=== PATIENT | male | born 1955 | race Caucasian/White ===

== ENCOUNTER 2020-06-16 21:32 | Inpatient (IN) | payer OTHER ==
[2020-06-16] MEDS ORDERED: Ondansetron 4 MG/2 ML SDV IVPUSH ONE (21:49)
[2020-06-16] MEDS ORDERED: HYDROmorphone 1 MG/ML Syringe IVPUSH ONE (21:49)
--- NOTE | 2020-06-16 21:55 | EDM.PDOC ---
ED HPI GENERAL MEDICAL PROBLEM - General Chief Complaint: Trauma Stated Complaint: BUCKED OFF/INJURED RIBS & RIGHT SIDE Time Seen by Provider: 06/16/20 21:37 Source of Information: Reports: Patient History Limitations: Reports: No Limitations - History of Present Illness INITIAL COMMENTS - FREE TEXT/NARRATIVE: A trauma alert was called for this patient. Mr. Hidalgo is a very pleasant 64-year-old gentleman with no chronic medical problems, who now presents to the ED via private vehicle after falling off of a horse around 16:30 this afternoon. He states that he landed on his right side on grass, and that he subsequently developed pain to his anterior and lateral right ribs, as well as to his right shoulder. He states that it is painful to breathe, and he reports dyspnea. He states that he was not wearing a helmet, but he did not strike his head, and he denies suffering loss of consciousness. The patient acknowledges that he drank 4-5 beers today, prior to his fall. He took one left-over tablet of Vicodin around 20:00, followed by 2 tablets of Tylenol. He last ate around 16:00. Here in the ED, the patient is found to be hemodynamically stable, afebrile, sat urating 77% on room air, up to 90% on 2 L of oxygen per nasal cannula. Other than today's injury, the patient denies having a recent fever, chills, sore throat, ear pain, nasal or sinus congestion, cough, dyspnea, chest pain, palpitations, nausea, vomiting, constipation, diarrhea, abdominal pain, urinary symptoms, recent weight gain or weight loss, recent bloody bowel movements or black bowel movements, recent joint aches, headaches, or rashes. The patient is vacationing here from [place]. Right Shoulder Pain Score (Numeric/FACES): 8 - Related Data Allergies Allergy/AdvReac Type Severity Reaction Status Date / Time Sulfa (Sulfonamide Allergy Cannot Verified 06/17/20 04:59 Antibiotics) Remember Home Meds: Home Meds Aspirin [[place] Aspirin] 81 mg PO DAILY 06/16/20 [History] Past Medical History - Past Surgical History HEENT Surgical History: Reports: Naso-Sinus Surgery (nose x 2), Oral Surgery (wisdom teeth extraction) GI Surgical History: Reports: Hernia, Inguinal (bilateral) Musculoskeletal Surgical History: Reports: Other (See Below) (Left hand repair) Social & Family History - Tobacco Use Smoking Status *Q: Never Smoker - Alcohol Use Alcohol Use History: Yes Alcohol Use Frequency: Socially - Recreational Drug Use Recreational Drug Use: No - Living Situation & Occupation Living situation: Reports: , with Spouse Occupation: Employed ([employer] Review of Systems - Review of Systems Review Of Systems: Comprehensive ROS is negative, except as noted in HPI. ED EXAM, GENERAL - Physical Exam Exam: See Below Exam Limited By: No Limitations General Appearance: Alert, WD/WN, Mild Distress Eye Exam: Bilateral Eye: EOMI, Normal Inspection Ears: Normal External Exam, Hearing Grossly Normal Nose: Normal Inspection Throat/Mouth: Normal Inspection, Normal Lips, Normal Voice, No Airway Compromise Head: Atraumatic, Normocephalic Neck: Normal Inspection, Full Range of Motion Respiratory/Chest: No Respiratory Distress, No Accessory Muscle Use, Decreased Breath Sounds (right side only), Other (Tenderness to palpation of the anterior right ribs, although no visible abnormality to the chest, such as swelling, erythema, ecchymosis, or abrasion). No: Crackles, Rhonchi, Wheezing, Stridor, Prolonged Expiration Cardiovascular: Normal Peripheral Pulses, Regular Rate, Rhythm, No Edema, No Gallop, No JVD, No Murmur, No Rub Peripheral Pulses: 3+: Radial (L), Radial (R) GI/Abdominal: Normal Bowel Sounds, Soft, Non-Tender, No Organomegaly, No Distention, No Abnormal Bruit, No Mass (Male) Exam: Deferred Rectal (Males) Exam: Deferred Back Exam: Normal Inspection, Full Range of Motion, NT Extremities: No Pedal Edema, Normal Capillary Refill, Other (The patient is dropping his right shoulder, although it is not squared off. Abrasions noted to the lateral right shoulder extending to the upper arm. No posterior shoulder depression. The patient complains of pain primarily to abduction, extension, and external rotation of the shoulder against resistance, although also has limited adduction, flexion, and internal rotation of the right shoulder due to pain. Neurovascular status of the right upper extremity is intact.) Neurological: Alert, Oriented, Normal Cognition, No Motor/Sensory Deficits Psychiatric: Normal Affect Skin Exam: Warm, Dry, Intact, Normal Color, No Rash ED TRAUMA PROCEDURES - Chest Tube Insertion Chest Tube Location: Right Site: Mid Axillary Line, Intercostal Space: (4) Tube Size: 28Fr Skin Prep: CDC Guidelines Followed, Betadine Local Anesthesia - Lidocaine (Xylocaine): 1% with EPI (50:50 admixture) Local Anesthesia - Bupivicaine (Marcaine): 0.5% Plain (50:50 admixture) Local Anesthetic Volume: Other (10 ml) Murdock of Air Dawes: Yes Number of Attempts: 1 Tube Sutured to Skin: Yes Post Procedure Tube Position Confirmed By: by CXR Tube Connected to Suction: Yes Course - Vital Signs Last Recorded V/S: Last Vital Signs Temp 36.6 C 06/17/20 03:01 Pulse 54 L 06/17/20 03:01 Resp 18 06/17/20 03:01 BP 129/79 06/17/20 03:01 Pulse Ox 93 L 06/17/20 03:01 - Orders/Labs/Meds Orders: Active Orders 24 hr Category Date Time Status Chest 1V Frontal [CR] Stat Exams 06/16/20 23:51 Taken Chest 2V [CR] Stat Exams 06/16/20 21:48 Taken Chest w Cont [CT] Stat Exams 06/17/20 00:05 Taken Shoulder Comp Rt [CR] Stat Exams 06/16/20 21:48 Taken Sodium Chloride 0.9% [Normal Saline] 1,000 ml Med 06/17/20 02:00 Active IV ASDIRECTED Medication Orders Acetaminophen (Tylenol) 650 mg PO Q4H PRN PRN Reason: Pain Hydromorphone HCl (Dilaudid) 1 mg IVPUSH Q3H PRN PRN Reason: Pain Sodium Chloride (Normal Saline) 1,000 mls @ 100 mls/hr IV ASDIRECTED JULIANN Oxycodone HCl (Oxycodone) 5 - 10 mg PO Q4H PRN PRN Reason: Pain Last Admin: 06/17/20 04:39 Dose: 5 mg Documented by: JONI Labs: Laboratory Tests 06/16/20 06/16/20 06/17/20 Range/Units 21:50 21:50 00:05 WBC 16.16 H (4.23-9.07) K/mm3 RBC 5.02 (4.63-6.08) M/mm3 Hgb 15.4 (13.7-17.5) gm/dl Hct 45.1 (40.1-51.0) % MCV 89.8 (79.0-92.2) fl MCH 30.7 (25.7-32.2) pg MCHC 34.1 (32.2-35.5) g/dl RDW Std Deviation 43.0 (35.1-43.9) fL Plt Count 257 (163-337) K/mm3 MPV 10.1 (9.4-12.3) fl Neut % (Auto) 86.0 H (34.0-67.9) % Lymph % (Auto) 5.3 L (21.8-53.1) % [place] % (Auto) 8.2 (5.3-12.2) % Eos % (Auto) 0.1 L (0.8-7.0) Baso % (Auto) 0.1 (0.1-1.2) % Neut # (Auto) 13.88 H (1.78-5.38) K/mm3 Lymph # (Auto) 0.86 L (1.32-3.57) K/mm3 [place] # (Auto) 1.33 H (0.30-0.82) K/mm3 Eos # (Auto) 0.02 L (0.04-0.54) K/mm3 Baso # (Auto) 0.02 (0.01-0.08) K/mm3 Manual Slide Review Abnormal smear Sodium 142 (136-145) mEq/L Potassium 4.3 (3.5-5.1) mEq/L Chloride 106 (98-107) mEq/L Carbon Dioxide 26 (21-32) mEq/L Anion Gap 14.3 (5-15) BUN 18 (7-18) mg/dL Creatinine 1.2 (0.7-1.3) mg/dL Est Cr Clr Drug Dosing 73.26 mL/min Estimated GFR (MDRD) > 60 (>60) mL/min BUN/Creatinine Ratio 15.0 (14-18) Glucose 154 H (80-115) mg/dL Calcium 8.9 (8.5-10.1) mg/dL COVID-19 ([facility]) Negative (NEGATIVE) Meds: Medications Generic Name Dose Route Start Last Admin Trade Name Freq PRN Reason Stop Dose Admin Acetaminophen 650 mg 06/17/20 03:30 Tylenol PO Q4H PRN Pain Hydromorphone HCl 1 mg 06/17/20 03:29 Dilaudid IVPUSH Q3H PRN Pain Sodium Chloride 1,000 mls @ 100 mls/hr 06/17/20 02:00 Normal Saline IV ASDIRECTED [facility] Oxycodone HCl 5 - 10 mg 06/17/20 03:26 06/17/20 04:39 Oxycodone PO 5 mg Q4H PRN Administration Pain Discontinued Medications Generic Name Dose Route Start Last Admin Trade Name Freq PRN Reason Stop Dose Admin Bupivacaine HCl 10 ml 06/16/20 22:53 06/17/20 00:08 Sensorcaine-Mpf 0.5% INJECT 06/16/20 22:54 10 ml ONETIME ONE Administration Bupivacaine HCl 10 ml 06/16/20 23:17 06/17/20 00:09 Sensorcaine-Mpf 0.5% INJECT 06/16/20 23:18 10 ml ONETIME ONE Administration Diatrizoate Meglum/Diatrizoate Sod 120 ml 06/17/20 02:03 06/17/20 02:37 Gastrografin 37% PO 06/17/20 02:04 120 ml ONETIME ONE Administration Hydromorphone HCl 1 mg 06/16/20 21:49 06/16/20 21:56 Dilaudid IVPUSH 06/16/20 21:50 1 mg ONETIME ONE Administration Hydromorphone HCl 1 mg 06/17/20 01:55 06/17/20 02:04 Dilaudid IVPUSH 06/17/20 01:56 1 mg ONETIME ONE Administration Sodium Chloride 1,000 mls @ 150 mls/hr 06/16/20 23:45 06/17/20 00:12 Normal Saline IV 150 mls/hr ASDIRECTED [facility] Administration Iopamidol 100 ml 06/17/20 02:03 06/17/20 02:37 Isovue-300 (61%) IVPUSH 06/17/20 02:04 100 ml ONETIME ONE Administration Lidocaine/Epinephrine 20 ml 06/16/20 22:52 06/17/20 00:08 Xylocaine 1% With Epinephrine 1:100,000 INJECT 06/16/20 22:53 20 ml ONETIME ONE Administration Ondansetron HCl 4 mg 06/16/20 21:49 06/16/20 21:56 Zofran IVPUSH 06/16/20 21:50 4 mg ONETIME ONE Administration Sodium Chloride 10 ml 06/17/20 02:04 06/17/20 02:37 Saline Flush FLUSH 06/17/20 02:05 10 ml ONETIME ONE Administration - Re-Assessments/Exams Free Text/Narrative Re-Assessment/Exam: 06/16/20 21:50 As above, the patient states that he fell off of a horse around 16:30 this afternoon, injuring his anterior and lateral right ribs as well as his right shoulder. On examination, the patient has tenderness to his anterior and lateral right ribs, although there is no visible abnormality to that area, however, he also has diminished breath sounds on the right, concerning for a pneumothorax. He has minimal use of his right shoulder due to pain, and while he does not have a squared off shoulder suggestive of a dislocation, a proximal humeral fracture is a possibility. I have ordered a chest x-ray and x-rays of his right shoulder to evaluate. He will also likely benefit from a CT of his chest, however, I will make that decision after seeing his preliminary x-rays. In the meantime, the patient will be given IV Dilaudid and IV Zofran. 06/16/20 22:37 Two-view chest radiograph reviewed. The cardiac silhouette is within normal limits. No pulmonary vascular congestion. No pleural effusions. No focal infiltrate. Large right-sided pneumothorax. No obvious rib fractures. Formal read per the Radiologist pending. 4-view radiographs of the right shoulder appear to be grossly normal, with no fractures or dislocations seen. Formal read per the Radiologist pending. Based on the above, I have asked to have the patient moved to one of our trauma bays so that I can place a right-sided chest tube. 06/16/20 22:50 The diagnosis of a pneumothorax and my plan to place a chest tube was discussed with both the patient, and, separately, his . Both are in agreement to proceed with a chest tube. Because the patient was given Dilaudid earlier, his will sign the consent form. 06/16/20 23:48 A sterile field was made with Betadine and sterile drapes. A generous amount of a 50-50 admixture of bupivacaine 0.5% without epinephrine and lidocaine 1% with epinephrine was locally infiltrated. An incision was made over the lateral right 4th rib, mid-axillary line, using a #10 blade, and blunt dissection down to the rib was made using my finger and forceps. The right chest cavity was entered, causing a substantial murdock of air. A 28 Fr chest tube was inserted and directed anteriorly until resistance was met. After exhalation, the tube was clamped. The tube was then sutured into place using 0-0 silk suture. An occlusive dressing using Xeroform, gauze, and rubberized tape was then made. The chest tube was then attached to a Pleur-evac at 20 cm of water, continuous suction. The patient tolerated the procedure well. A post-procedure portable chest x-ray has been ordered, along with a CT of the chest with IV contrast to evaluate for any other trauma, and, since the patient will need to be admitted, a test for the SARS-CoV-2 virus. In the meantime, the patient will be given IV fluid. 06/17/20 00:49 Portable chest radiograph reviewed. There is a chest tube on the right, with the tip directed superiorly adjacent to the mediastinum. The cardiac silhouette is at the upper limits of normal. No pulmonary vascular congestion. No pleural effusions seen on this AP view. No focal infiltrate, although there does appear to be a patch of atelectasis in the right midlung. The previously seen right pneumothorax appears to have resolved, with complete expansion of the right lung. Formal read per the Radiologist pending. The test for the SARS-CoV-2 virus has returned negative. 06/17/20 01:28 CT of the chest with IV contrast is read by [facility] as: 1. RIGHT chest tube in place. Small RIGHT pneumothorax. 2. Small RIGHT hemothorax. 3. RIGHT perifissural and posterior basilar lower lobe geographic opacification, possibly atelectasis versus pneumonia versus contusion injury. 4. Multiple RIGHT rib fractures. RIGHT scapular fracture. 06/17/20 01:[address] Weber at 01:33. He accepted the patient for admission to the [facility] floor. He asked that I order a baseline CBC and BMP. He asked that I write for bridge orders that include 1 to 2 tabs of oral oxycodone Q 4 hrs prn pain, as well as for Dilaudid 1 mg Q 3 hrs prn pain. The patient may also be given 650 mg of acetaminophen Q 4 hrs, separately from the other pain medications. He is to receive some IV fluid, and be kept NPO. He will see the patient in the morning. 06/17/20 01:53 Dr. Weber's plan discussed with the patient. He is agreeable. 06/17/20 01:58 The patient's CBC is remarkable for WBC count elevated at 16.16, with the remainder of his CBC being unremarkable. His BMP is remarkable for a blood glucose elevated 154, with the remainder of his BMP being unremarkable. Departure - Departure Time of Disposition: 01:42 Disposition: Admitted As Inpatient 67 Condition: Good Clinical Impression: Fall from horse, Multiple fractures of ribs, right side, initial encounter for closed fracture, Pneumothorax, right, Right shoulder injury, Right scapula fracture - Discharge Information *PRESCRIPTION DRUG MONITORING PROGRAM REVIEWED*: Not Applicable *COPY OF PRESCRIPTION DRUG MONITORING REPORT IN PATIENT DELORES: Not Applicable Sepsis Event Note (ED) - Evaluation Sepsis Screening Result: No Definite Risk - Focused Exam Vital Signs: Vital Signs Temp Pulse Resp BP Pulse Ox 06/16/20 21:58 60 18 152/94 H 90 L 06/16/20 21:35 36.1 C 66 22 H 152/94 H 80 L - My Orders Last 24 Hours: My Active Orders 06/16/20 21:48 Chest 2V [CR] Stat Shoulder Comp Rt [CR] Stat 06/16/20 23:51 Chest 1V Frontal [CR] Stat 06/17/20 00:05 Chest w Cont [CT] Stat 06/17/20 02:00 Sodium Chloride 0.9% [Normal Saline] 1,000 ml IV ASDIRECTED - Assessment/Plan Last 24 Hours: My Active Orders 06/16/20 21:48 Chest 2V [CR] Stat Shoulder Comp Rt [CR] Stat 06/16/20 23:51 Chest 1V Frontal [CR] Stat 06/17/20 00:05 Chest w Cont [CT] Stat 06/17/20 02:00 Sodium Chloride 0.9% [Normal Saline] 1,000 ml IV ASDIRECTED
[2020-06-16] MEDS ORDERED: Lidocaine 1% with EPINEPHrine 1:100,000 20 ML MDV INJECT ONE (22:52)
[2020-06-16] MEDS ORDERED: Bupivacaine 0.5% 10 ML SDV INJECT ONE ×2 (22:53→23:17)
[2020-06-16] MEDS ORDERED: Sodium Chloride 0.9% 1,000 ML IV SCH (23:45)
[2020-06-17] MEDS ORDERED: HYDROmorphone 1 MG/ML Syringe IVPUSH ONE (01:55)
[2020-06-17] MEDS ORDERED: Diatrizoate Meglumine/Diatrizoate Sodium 37% 120 ML Bottle PO ONE (02:03)
[2020-06-17] MEDS ORDERED: Iopamidol 612 MG/ML 100 ML Bottle IVPUSH ONE (02:03)
[2020-06-17] MEDS: Sodium Chloride 0.9% 10 ML Syringe FLUSH ONE ×2 (02:06→02:37)
[2020-06-17] MEDS ORDERED: Acetaminophen 325 MG Tab PO PRN (03:30)
[2020-06-17] MEDS: oxyCODONE 5 MG Tab PO PRN ×4 (04:39→20:29)
[2020-06-17] MEDS: HYDROmorphone 1 MG/ML Syringe IVPUSH PRN (07:57)
[2020-06-17] MEDS: Sodium Chloride 0.9% 1,000 ML IV SCH ×2 (10:16→20:28)
--- NOTE | 2020-06-17 12:00 | PCM.HP.2 ---
H&P History of Present Illness - General Date of Service: 06/17/20 Admit Problem/Dx: Admission Diagnosis/Problem Admission Diagnosis/Problem Pneumothorax on right Source of Information: Patient History Limitations: Reports: No Limitations - History of Present Illness Initial Comments - Free Text/Narative: Patient is vacationing from [place]. Was riding a horse and fell hitting his right body yesterday afternoon. Denies hitting head, denies LOC, no headache or blurry vision. In the ED he was not breathing well and was found to have right sided pneumothorax. Chest tube placed with immediate relief. He denies any other significant medical problems. Onset of Symptoms: Reports: Sudden Duration of Symptoms: Reports: Day(s): (1) Location: Reports: Chest Quality: Reports: Stabbing Severity: Severe Improves with: Reports: Immobilization, Rest Worsens with: Reports: Breathing Associated Symptoms: Reports: Chest Pain Right Shoulder Pain Score (Numeric/FACES): 8 - Related Data Allergies/Adverse Reactions: Allergies Allergy/AdvReac Type Severity Reaction Status Date / Time Sulfa (Sulfonamide Allergy Cannot Verified 06/17/20 04:59 Antibiotics) Remember Home Medications: Home Meds Aspirin [[place] Aspirin] 81 mg PO DAILY 06/16/20 [History] Past Medical History - Past Health History Medical/Surgical History: Denies Medical/Surgical History Cardiovascular History: Reports: None Respiratory History: Reports: None Neurological History: Reports: None - Infectious Disease History Infectious Disease History: Reports: Chicken Pox, Measles, Mumps - Past Surgical History HEENT Surgical History: Reports: Naso-Sinus Surgery (nose x 2), Oral Surgery (wisdom teeth extraction) GI Surgical History: Reports: Hernia, Inguinal (bilateral) Musculoskeletal Surgical History: Reports: Other (See Below) (Left hand repair) Social & Family History - Family History Family Medical History: Noncontributory - Tobacco Use Smoking Status *Q: Never Smoker Second Hand Smoke Exposure: No - Caffeine Use Caffeine Use: Reports: None - Recreational Drug Use Recreational Drug Use: No - Living Situation & Occupation Living situation: Reports: , with Spouse Occupation: Employed ([employer]) H&P Review of Systems - Review of Systems: Review Of Systems: See Below General: Reports: No Symptoms HEENT: Reports: No Symptoms Pulmonary: Reports: No Symptoms Cardiovascular: Reports: No Symptoms Gastrointestinal: Reports: No Symptoms Genitourinary: Reports: No Symptoms Musculoskeletal: Reports: No Symptoms Skin: Reports: No Symptoms Psychiatric: Reports: No Symptoms Neurological: Reports: No Symptoms Exam - Exam Exam: See Below - Vital Signs Vital Signs: Last Vital Signs Temp 98.1 F 06/17/20 04:57 Pulse 60 06/17/20 07:59 Resp 20 06/17/20 04:57 BP 121/87 06/17/20 04:57 Pulse Ox 92 L 06/17/20 07:59 Weight: 108.817 kg - Exam Quality Assessment: Supplemental Oxygen General: Alert, Oriented, Cooperative Neck: Supple, Trachea Midline Lungs: Crackles (right base), Other (splinting) Cardiovascular: Regular Rate, Regular Rhythm, Normal S1, Normal S2 GI/Abdominal Exam: Soft, Non-Tender, No Organomegaly, No Distention, No Abnormal Bruit, No Mass - Patient Data Lab Results Last 24 hrs: Laboratory Results - last 24 hr 06/16/20 06/16/20 06/17/20 Range/Units 21:50 21:50 00:05 WBC 16.16 H (4.23-9.07) K/mm3 RBC 5.02 (4.63-6.08) M/mm3 Hgb 15.4 (13.7-17.5) gm/dl Hct 45.1 (40.1-51.0) % MCV 89.8 (79.0-92.2) fl MCH 30.7 (25.7-32.2) pg MCHC 34.1 (32.2-35.5) g/dl RDW Std Deviation 43.0 (35.1-43.9) fL Plt Count 257 (163-337) K/mm3 MPV 10.1 (9.4-12.3) fl Neut % (Auto) 86.0 H (34.0-67.9) % Lymph % (Auto) 5.3 L (21.8-53.1) % [place] % (Auto) 8.2 (5.3-12.2) % Eos % (Auto) 0.1 L (0.8-7.0) Baso % (Auto) 0.1 (0.1-1.2) % Neut # (Auto) 13.88 H (1.78-5.38) K/mm3 Lymph # (Auto) 0.86 L (1.32-3.57) K/mm3 [place] # (Auto) 1.33 H (0.30-0.82) K/mm3 Eos # (Auto) 0.02 L (0.04-0.54) K/mm3 Baso # (Auto) 0.02 (0.01-0.08) K/mm3 Manual Slide Review Abnormal smear Sodium 142 (136-145) mEq/L Potassium 4.3 (3.5-5.1) mEq/L Chloride 106 (98-107) mEq/L Carbon Dioxide 26 (21-32) mEq/L Anion Gap 14.3 (5-15) BUN 18 (7-18) mg/dL Creatinine 1.2 (0.7-1.3) mg/dL Est Cr Clr Drug Dosing 73.26 mL/min Estimated GFR (MDRD) > 60 (>60) mL/min BUN/Creatinine Ratio 15.0 (14-18) Glucose 154 H (80-115) mg/dL Calcium 8.9 (8.5-10.1) mg/dL COVID-19 ([facility]) Negative (NEGATIVE) Result Diagrams: 06/16/20 21:50 06/16/20 21:50 Sepsis Event Note - Evaluation Sepsis Screening Result: No Definite Risk - Focused Exam Vital Signs: Vital Signs Temp Pulse Pulse Resp BP BP Pulse Ox 06/17/20 07:59 60 92 L 06/17/20 07:52 57 L 88 L 06/17/20 07:49 59 L 83 L 06/17/20 04:57 98.1 F 50 L 20 121/87 93 L 06/17/20 03:01 97.9 F 54 L 18 129/79 93 L 06/17/20 02:52 59 L 20 126/89 92 L Problem List Initiated/Reviewed/Updated: No Orders Last 24hrs: Active Orders 24 hr Category Date Time Status Admission Status [Patient Status] [ADT] Routine ADT 06/17/20 02:07 Active Antiembolic Devices [RC] BID Care 06/17/20 03:50 Active Bedrest Bedside Commode [RC] ASDIRECTED Care 06/17/20 03:26 Active Incentive Spirometry [RT Incentive Spirometry] [RC] Care 06/17/20 08:06 Active Q1HWA Oxygen Therapy Adult [Oxygen Therapy] [RC] ASDIRECTED Care 06/17/20 06:15 Active Clear Liquid Diet [DIET] Diet 06/17/20 Lunch Active Chest 1V Frontal [CR] Routine Exams 06/17/20 07:52 Taken Chest 1V Frontal [CR] Stat Exams 06/16/20 23:51 Taken Chest 2V [CR] Stat Exams 06/16/20 21:48 Taken Chest w Cont [CT] Stat Exams 06/17/20 00:05 Taken Shoulder Comp Rt [CR] Stat Exams 06/16/20 21:48 Taken Acetaminophen [TylenoL] Med 06/17/20 03:30 Active 650 mg PO Q4H PRN HYDROmorphone [Dilaudid] Med 06/17/20 03:29 Active 1 mg IVPUSH Q3H PRN Sodium Chloride 0.9% [Normal Saline] 1,000 ml Med 06/17/20 02:00 Active IV ASDIRECTED oxyCODONE Med 06/17/20 03:26 Active 5 - 10 mg PO Q4H PRN SCD [Sequential Compression Device] [OM.PC] Routine Oth 06/17/20 03:50 Ordered Resuscitation Status Routine Resus Stat 06/17/20 03:31 Ordered Medication Orders Acetaminophen (Tylenol) 650 mg PO Q4H PRN PRN Reason: Pain Hydromorphone HCl (Dilaudid) 1 mg IVPUSH Q3H PRN PRN Reason: Pain Last Admin: 06/17/20 07:57 Dose: 1 mg Documented by: JONI Sodium Chloride (Normal Saline) 1,000 mls @ 100 mls/hr IV ASDIRECTED JULIANN Last Admin: 06/17/20 10:16 Dose: 100 mls/hr Documented by: ANGIE Oxycodone HCl (Oxycodone) 5 - 10 mg PO Q4H PRN PRN Reason: Pain Last Admin: 06/17/20 10:16 Dose: 5 mg Documented by: Admin: 06/17/20 04:39 Dose: 5 mg Documented by: JONI Assessment/Plan Comment:: Patient presents with right pneumothorax, right posterior fib fractures x4 and right scapular fracture. - Chest tube placed, will keep to suction today - Pain control with PRN Dilaudid, Oxycodone and Tylenol - Encourage Incentive spirometer and pulmonary hygiene - Right scapular fracture, will have PT fit him with a sling and he can follow up with Ortho
[2020-06-18] MEDS: oxyCODONE 5 MG Tab PO PRN ×5 (04:48→22:30)
--- NOTE | 2020-06-18 11:02 | CR ---
Chest: Portable view of the chest is obtained. Comparison: Prior chest x-ray performed earlier on the same day (10:26 PM). Right-sided chest tube is seen. Most of previous pneumothorax has been evacuated. Large nodular density is noted within the right midlung which is most likely due to thick area of atelectasis. Lesser atelectasis is seen more inferiorly. Left lung is clear. Heart size and mediastinum are within normal limits for portable technique. Right-sided rib fractures are seen which are better noted on subsequent chest CT. Impression: 1. Right chest tube with most of the right-sided pneumothorax seen previously seen having been evacuated. 2. Areas of atelectasis as described above within the right lung. 3. Right-sided rib fractures. Diagnostic code #3 This report was dictated in MDT
--- NOTE | 2020-06-18 11:02 | CT ---
CT chest Technique: Multiple axial sections through the chest were obtained. Intravenous contrast was utilized. Findings: Visualized upper abdominal structures appear within normal limits. Small pleural effusion is seen. Areas of atelectasis are seen within the right chest. Anterior basilar pneumothorax is seen. Right-sided chest tube is seen. Pneumothorax has decreased from baseline exam. Mediastinum shows several small lymph nodes which are believed to be within normal limits. Minimal coronary artery calcification is seen. No pericardial effusion is appreciated. Bone window settings were reviewed. No discrete sternal fracture is appreciated. Fracture is seen within the posterior first rib posterior third rib, slightly displaced posterior fourth rib, posterior fifth rib, posterior seventh rib and posterior eighth rib with small bony fragment projecting into the pleural space. Right scapular fracture is also noted which involves the body of the scapula and is fractured in several places. No thoracic spine fracture is appreciated. No left-sided rib fracture is appreciated. Impression: 1. Small residual pneumothorax with right chest tube. 2. Areas of atelectasis within the right chest. Small right-sided pleural effusion. 3. Multiple posterior right rib fractures. Inferior fracture involving the eighth rib shows a small anterior bony fragment projecting into the pleural space. 4. Slightly comminuted scapular fracture within the body. Diagnostic code #3 This report was dictated in MDT I agree with preliminary report from [facility], finalized on 06/17/20, 2:20 AM Central Daylight Time
--- NOTE | 2020-06-18 11:02 | CR ---
Chest: Portable view of the chest was obtained. Comparison: Prior chest x-rays performed earlier on the same day (12:22 AM) and previous chest x-ray performed on 06/16/20. Thick atelectasis is again noted within the right liver and lung. Since this is persisting it is difficult to exclude focal area of lung contusion. Right chest tube has changed in position from previous exam and is slightly withdrawn. No definite pneumothorax is seen. Slight atelectasis is noted within the left midlung and right lower lung. Lungs otherwise are clear. Heart size and mediastinum are stable. No change in the bony structures is seen. Impression: 1. Right chest tube has been slightly withdrawn from previous exam. 2. Thick area of atelectasis or possibly pulmonary contusion within the right midlung. Lesser areas of atelectasis within both lungs. 3. No definite pneumothorax. Diagnostic code #3 This report was dictated in MDT
--- NOTE | 2020-06-18 11:03 | CR ---
Chest: 2 views of the chest were obtained. Comparison: No prior chest imaging is available. Large pneumothorax is noted on the right side. Left lung is clear. Heart size is normal. Tortuous thoracic aorta is seen. Right upper rib fractures are seen which will be described on subsequent chest CT. Impression: 1. Large right-sided pneumothorax with rib fractures. 2. Left lung is clear. Diagnostic code #5 This report was dictated in MDT
--- NOTE | 2020-06-18 11:03 | CR ---
Right shoulder: 3 views of the right shoulder were obtained. Comparison: No previous right shoulder imaging is available. Findings: Fracture is identified within the body of the scapula. Glenohumeral joint appears aligned. Rib fractures are again seen. No additional fracture is appreciated. Large right-sided pneumothorax is seen. Impression: 1. Right scapular fracture and rib fractures. 2. Right pneumothorax. Diagnostic code #5 This report was dictated in MDT
--- NOTE | 2020-06-18 11:15 | PCM.PN ---
- General Info Date of Service: 06/18/20 Admission Dx/Problem (Free Text): Admission Diagnosis/Problem Admission Diagnosis/Problem Pneumothorax on right Subjective Update: Patient did well overnight. Pain is still present but is using incentive spirometer. Tolerating diet Functional Status: Reports: Tolerating Diet, Ambulating, Urinating Pain Score: 6 - Review of Systems General: Reports: No Symptoms HEENT: Reports: No Symptoms Pulmonary: Reports: No Symptoms, Other (right pneumothorax) Cardiovascular: Reports: No Symptoms Gastrointestinal: Reports: No Symptoms Genitourinary: Reports: No Symptoms Musculoskeletal: Reports: No Symptoms Skin: Reports: No Symptoms Neurological: Reports: No Symptoms Psychiatric: Reports: No Symptoms - Patient Data Vitals - Most Recent: Last Vital Signs Temp 99.9 F 06/18/20 08:00 Pulse 63 06/18/20 08:00 Resp 20 06/18/20 08:00 BP 154/88 H 06/18/20 08:00 Pulse Ox 96 06/18/20 08:00 Weight - Most Recent: 108.272 kg I&O - Last 24 Hours: Intake & Output 06/17/20 06/18/20 06/18/20 22:59 06:59 14:59 Intake Total 380 2825 Output Total 1130 Balance 380 1695 Med Orders - Current: Current Medications Acetaminophen (Tylenol) 650 mg PO Q4H PRN PRN Reason: Pain Last Admin: 06/18/20 10:38 Dose: 650 mg Documented by: Hydromorphone HCl (Dilaudid) 1 mg IVPUSH Q3H PRN PRN Reason: Pain Last Admin: 06/17/20 07:57 Dose: 1 mg Documented by: Sodium Chloride (Normal Saline) 1,000 mls @ 50 mls/hr IV ASDIRECTED JULIANN Oxycodone HCl (Oxycodone) 5 - 10 mg PO Q4H PRN PRN Reason: Pain Last Admin: 06/18/20 08:39 Dose: 5 mg Documented by: Discontinued Medications Bupivacaine HCl (Sensorcaine-Mpf 0.5%) 10 ml INJECT ONETIME ONE Stop: 06/16/20 22:54 Last Admin: 06/17/20 00:08 Dose: 10 ml Documented by: Bupivacaine HCl (Sensorcaine-Mpf 0.5%) 10 ml INJECT ONETIME ONE Stop: 06/16/20 23:18 Last Admin: 06/17/20 00:09 Dose: 10 ml Documented by: Diatrizoate Meglum/Diatrizoate Sod (Gastrografin 37%) 120 ml PO ONETIME ONE Stop: 06/17/20 02:04 Last Admin: 06/17/20 02:37 Dose: 120 ml Documented by: Hydromorphone HCl (Dilaudid) 1 mg IVPUSH ONETIME ONE Stop: 06/16/20 21:50 Last Admin: 06/16/20 21:56 Dose: 1 mg Documented by: Hydromorphone HCl (Dilaudid) 1 mg IVPUSH ONETIME ONE Stop: 06/17/20 01:56 Last Admin: 06/17/20 02:04 Dose: 1 mg Documented by: Sodium Chloride (Normal Saline) 1,000 mls @ 150 mls/hr IV ASDIRECTED [facility] Last Admin: 06/17/20 00:12 Dose: 150 mls/hr Documented by: Sodium Chloride (Normal Saline) 1,000 mls @ 50 mls/hr IV ASDIRECTED [facility] Last Admin: 06/17/20 20:28 Dose: 100 mls/hr Documented by: Iopamidol (Isovue-300 (61%)) 100 ml IVPUSH ONETIME ONE Stop: 06/17/20 02:04 Last Admin: 06/17/20 02:37 Dose: 100 ml Documented by: Lidocaine/Epinephrine (Xylocaine 1% With Epinephrine 1:100,000) 20 ml INJECT ONETIME ONE Stop: 06/16/20 22:53 Last Admin: 06/17/20 00:08 Dose: 20 ml Documented by: Ondansetron HCl (Zofran) 4 mg IVPUSH ONETIME ONE Stop: 06/16/20 21:50 Last Admin: 06/16/20 21:56 Dose: 4 mg Documented by: Sodium Chloride (Saline Flush) 10 ml FLUSH ONETIME ONE Stop: 06/17/20 02:05 Last Admin: 06/17/20 02:37 Dose: 10 ml Documented by: - Exam General: Alert, Oriented, Cooperative Lungs: Normal Respiratory Effort, Crackles (right base) Cardiovascular: Regular Rate, Regular Rhythm, No Murmurs GI/Abdominal Exam: Soft, Non-Tender, No Organomegaly, No Distention Sepsis Event Note - Evaluation Sepsis Screening Result: No Definite Risk - Focused Exam Vital Signs: Vital Signs Temp Temp Pulse Pulse Resp BP BP 06/18/20 08:00 99.9 F 63 20 154/88 H 06/18/20 04:35 98.6 F 54 L 19 125/84 06/18/20 00:44 98.2 F 55 L 18 137/81 Pulse Ox 06/18/20 08:00 96 06/18/20 04:35 96 06/18/20 00:44 96 - Problem List Review Problem List Initiated/Reviewed/Updated: No - My Orders Last 24 Hours: My Active Orders 06/17/20 16:24 Up With Assistance [RC] BID 06/17/20 Dinner Regular Diet [DIET] 06/17/20 23:45 Sodium Chloride 0.9% [Normal Saline] 1,000 ml IV ASDIRECTED - Assessment Assessment:: Patient has right posterior rib fxs, right scapular fx and right pneumothorax s/p fall from horse on 06/17. - Plan Plan:: Patient presents with right pneumothorax, right posterior fib fractures x4 and right scapular fracture. - Chest tube placed, put to water seal today and repeat chest xr at 2PM - Pain control with PRN Dilaudid, Oxycodone and Tylenol - Encourage Incentive spirometer and pulmonary hygiene - Right scapular fracture, will have PT fit him with a sling and he can follow up with Ortho
[2020-06-18] MEDS: Enoxaparin 30 MG/0.3 ML Syringe SUBCUT SCH ×2 (11:42→20:59)
[2020-06-18] MEDS: Sodium Chloride 0.9% 1,000 ML IV SCH (11:43)
--- NOTE | 2020-06-18 16:54 | CR ---
: Portable view of the chest was obtained. [place]: Prior chest x-ray of 06/17/20. Improving appearance of both sides of the chest from prior study. Right-sided chest tube remains stable in position. No discrete pneumothorax is seen. Heart size is mildly enlarged. Upper mediastinum is widened which is due to portable technique. Impression: 1. Improved appearance of chest x-ray from prior study. 2. No definite pneumothorax. 3. Chest tube remains in place. Diagnostic code #2 This report was dictated in MDT
[2020-06-18] MEDS: HYDROmorphone 1 MG/ML Syringe IVPUSH PRN (21:13)
[2020-06-19] MEDS: oxyCODONE 5 MG Tab PO PRN ×4 (05:02→21:20)
[2020-06-19] MEDS: Sodium Chloride 0.9% 1,000 ML IV SCH (06:02)
--- NOTE | 2020-06-19 08:09 | CR ---
Chest: Portable view of the chest was obtained. Comparison: Prior chest x-ray of 06/18/20. Thick area of atelectasis within the right mid to lower lung. This has increased from previous exam. Lesser atelectasis within the left base has also increased. Right basilar chest tube is noted. Lungs otherwise are clear. Heart size is slightly enlarged. Tortuous thoracic aorta is noted. Right sided rib fractures are again noted. Impression: 1. Areas of atelectasis as noted above. 2. Right basilar chest tube is seen. No definite pneumothorax is seen at this time. 3. Stable rib fractures. Diagnostic code #3 This report was dictated in MDT
[2020-06-19] MEDS: Enoxaparin 30 MG/0.3 ML Syringe SUBCUT SCH ×2 (08:26→20:00)
--- NOTE | 2020-06-19 10:36 | PCM.PN ---
- General Info Date of Service: 06/19/20 Admission Dx/Problem (Free Text): Admission Diagnosis/Problem Admission Diagnosis/Problem Pneumothorax on right Subjective Update: Patient is stable. Doing better. Breathing is stable. Tolerating diet Functional Status: Reports: Pain Controlled, Tolerating Diet, Urinating - Review of Systems General: Reports: No Symptoms HEENT: Reports: No Symptoms Pulmonary: Reports: Other (right sided chest pain ) Cardiovascular: Reports: No Symptoms Gastrointestinal: Reports: No Symptoms Genitourinary: Reports: No Symptoms Musculoskeletal: Reports: No Symptoms Skin: Reports: No Symptoms Neurological: Reports: No Symptoms Psychiatric: Reports: No Symptoms - Patient Data Vitals - Most Recent: Last Vital Signs Temp 98.2 F 06/19/20 08:21 Pulse 56 L 06/19/20 08:21 Resp 12 06/19/20 05:01 BP 155/98 H 06/19/20 08:21 Pulse Ox 98 06/19/20 08:21 Weight - Most Recent: 108.136 kg I&O - Last 24 Hours: Intake & Output 06/18/20 06/19/20 06/19/20 22:59 06:59 14:59 Intake Total 1008 1055 Output Total 480 1080 Balance 528 -25 Med Orders - Current: Current Medications Acetaminophen (Tylenol) 650 mg PO Q4H PRN PRN Reason: Pain Last Admin: 06/18/20 10:38 Dose: 650 mg Documented by: Enoxaparin Sodium (Lovenox) 30 mg SUBCUT Q12HR [facility] Last Admin: 06/19/20 08:26 Dose: 30 mg Documented by: Hydromorphone HCl (Dilaudid) 1 mg IVPUSH Q3H PRN PRN Reason: Pain Last Admin: 06/18/20 21:13 Dose: 1 mg Documented by: Sodium Chloride (Normal Saline) 1,000 mls @ 50 mls/hr IV ASDIRECTED [facility] Last Admin: 06/19/20 06:02 Dose: 50 mls/hr Documented by: Oxycodone HCl (Oxycodone) 5 - 10 mg PO Q4H PRN PRN Reason: Pain Last Admin: 06/19/20 10:27 Dose: 10 mg Documented by: Discontinued Medications Bupivacaine HCl (Sensorcaine-Mpf 0.5%) 10 ml INJECT ONETIME ONE Stop: 06/16/20 22:54 Last Admin: 06/17/20 00:08 Dose: 10 ml Documented by: Bupivacaine HCl (Sensorcaine-Mpf 0.5%) 10 ml INJECT ONETIME ONE Stop: 06/16/20 23:18 Last Admin: 06/17/20 00:09 Dose: 10 ml Documented by: Diatrizoate Meglum/Diatrizoate Sod (Gastrografin 37%) 120 ml PO ONETIME ONE Stop: 06/17/20 02:04 Last Admin: 06/17/20 02:37 Dose: 120 ml Documented by: Hydromorphone HCl (Dilaudid) 1 mg IVPUSH ONETIME ONE Stop: 06/16/20 21:50 Last Admin: 06/16/20 21:56 Dose: 1 mg Documented by: Hydromorphone HCl (Dilaudid) 1 mg IVPUSH ONETIME ONE Stop: 06/17/20 01:56 Last Admin: 06/17/20 02:04 Dose: 1 mg Documented by: Sodium Chloride (Normal Saline) 1,000 mls @ 150 mls/hr IV ASDIRECTED [facility] Last Admin: 06/17/20 00:12 Dose: 150 mls/hr Documented by: Sodium Chloride (Normal Saline) 1,000 mls @ 50 mls/hr IV ASDIRECTED [facility] Last Admin: 06/17/20 20:28 Dose: 100 mls/hr Documented by: Iopamidol (Isovue-300 (61%)) 100 ml IVPUSH ONETIME ONE Stop: 06/17/20 02:04 Last Admin: 06/17/20 02:37 Dose: 100 ml Documented by: Lidocaine/Epinephrine (Xylocaine 1% With Epinephrine 1:100,000) 20 ml INJECT ONETIME ONE Stop: 06/16/20 22:53 Last Admin: 06/17/20 00:08 Dose: 20 ml Documented by: Ondansetron HCl (Zofran) 4 mg IVPUSH ONETIME ONE Stop: 06/16/20 21:50 Last Admin: 06/16/20 21:56 Dose: 4 mg Documented by: Sodium Chloride (Saline Flush) 10 ml FLUSH ONETIME ONE Stop: 06/17/20 02:05 Last Admin: 06/17/20 02:37 Dose: 10 ml Documented by: - Exam General: Alert, Oriented, Cooperative Lungs: Crackles (bibasilar) Cardiovascular: Regular Rate, Regular Rhythm Sepsis Event Note - Evaluation Sepsis Screening Result: No Definite Risk - Focused Exam Vital Signs: Vital Signs Temp Pulse Resp BP Pulse Ox 06/19/20 08:21 98.2 F 56 L 155/98 H 98 06/19/20 05:01 98.8 F 57 L 12 130/99 H 95 - Problem List Review Problem List Initiated/Reviewed/Updated: No - My Orders Last 24 Hours: My Active Orders 06/18/20 11:30 Enoxaparin [Lovenox] 30 mg SUBCUT Q12HR 06/20/20 05:11 Chest 1V Frontal [CR] AM - Assessment Assessment:: Patient has right posterior rib fxs, right scapular fx and right pneumothorax s/p fall from horse on 06/17. - Plan Plan:: Patient presents with right pneumothorax, right posterior fib fractures x4 and right scapular fracture. - Chest tube placed, increased atelectasis today but no new pneumothorax on waterseal. Will clamp the chest tube today and have the patient walk and do intensive breathing exercises. Chest Xray tomorrow AM is patient is stable. And if Xray is stable will remove the chest tube in the AM. - Pain control with PRN Dilaudid, Oxycodone and Tylenol - Encourage Incentive spirometer and pulmonary hygiene - Right scapular fracture, will have PT fit him with a sling and he can follow up with Ortho
[2020-06-19] MEDS: Polyethylene Glycol 3350 Powder 17 GM Packet PO SCH (11:39)
--- NOTE | 2020-06-19 20:10 | CR ---
Chest: 2 views of the chest were obtained. Comparison: Prior chest x-ray of 06/19/20 (7:21 AM). Findings: Right basilar chest tube is seen. Scattered areas of atelectasis are seen within both lungs which may be slightly increased from previous study. Small apical pneumothorax is noted on the current exam. Heart size is normal. Tortuous thoracic aorta is seen. Right-sided rib fractures remain unchanged. Impression: 1. Reappearance of small right apical pneumothorax. 2. Increasing atelectasis within both lung bases. 3. Stable right basilar chest tube and stable rib fractures. Diagnostic code #3 This report was dictated in MDT
[2020-06-20] MEDS: Sodium Chloride 0.9% 1,000 ML IV SCH ×2 (02:11→20:40)
[2020-06-20] MEDS: oxyCODONE 5 MG Tab PO PRN ×5 (02:21→21:00)
[2020-06-20] MEDS ORDERED: Magnesium Hydroxide 400 MG/5 ML Susp 30 ML Cup PO ONE (06:00)
[2020-06-20] MEDS: Enoxaparin 30 MG/0.3 ML Syringe SUBCUT SCH ×2 (08:40→20:21)
[2020-06-20] MEDS: Polyethylene Glycol 3350 Powder 17 GM Packet PO SCH (08:41)
--- NOTE | 2020-06-20 16:19 | CR ---
Chest: Portable view of the chest was obtained. Comparison: Prior chest x-ray performed on 06/19/20. Bibasilar areas of atelectasis is seen. Very small right apical pneumothorax is seen. Right basilar chest tube is noted. Bony structures are unchanged. Impression: 1. Small right apical pneumothorax remains. 2. Atelectasis within both lung basis with right-sided chest tube being seen. Diagnostic code #3 This report was dictated in MDT
--- NOTE | 2020-06-20 17:45 | PCM.PN ---
- General Info Date of Service: 06/20/20 Admission Dx/Problem (Free Text): Admission Diagnosis/Problem Admission Diagnosis/Problem Pneumothorax on right Subjective Update: Patient doing well. on RA. ambulating, eating. Functional Status: Reports: Pain Controlled, Tolerating Diet, Ambulating, Urinating - Review of Systems General: Reports: No Symptoms HEENT: Reports: No Symptoms Pulmonary: Reports: Other (left sided rib fxs) Cardiovascular: Reports: No Symptoms Gastrointestinal: Reports: No Symptoms Genitourinary: Reports: No Symptoms Musculoskeletal: Reports: No Symptoms Skin: Reports: No Symptoms Neurological: Reports: No Symptoms Psychiatric: Reports: No Symptoms - Patient Data Vitals - Most Recent: Last Vital Signs Temp 98.1 F 06/20/20 17:32 Pulse 60 06/20/20 17:32 Resp 20 06/20/20 17:32 BP 147/93 H 06/20/20 17:32 Pulse Ox 92 L 06/20/20 17:32 Weight - Most Recent: 113.806 kg I&O - Last 24 Hours: Intake & Output 06/20/20 06/20/20 06/20/20 06:59 14:59 22:59 Intake Total 1578 420 640 Output Total 650 800 790 Balance 928 -380 -150 Med Orders - Current: Current Medications Acetaminophen (Tylenol) 650 mg PO Q4H PRN PRN Reason: Pain Last Admin: 06/18/20 10:38 Dose: 650 mg Documented by: Enoxaparin Sodium (Lovenox) 30 mg SUBCUT Q12HR [facility] Last Admin: 06/20/20 08:40 Dose: 30 mg Documented by: Hydromorphone HCl (Dilaudid) 1 mg IVPUSH Q3H PRN PRN Reason: Pain Last Admin: 06/18/20 21:13 Dose: 1 mg Documented by: Sodium Chloride (Normal Saline) 1,000 mls @ 50 mls/hr IV ASDIRECTED [facility] Last Admin: 06/20/20 02:11 Dose: 50 mls/hr Documented by: Oxycodone HCl (Oxycodone) 5 - 10 mg PO Q4H PRN PRN Reason: Pain Last Admin: 06/20/20 15:09 Dose: 5 mg Documented by: Polyethylene Glycol (Miralax) 17 gm PO DAILY [facility] Last Admin: 06/20/20 08:41 Dose: 17 gm Documented by: Discontinued Medications Bupivacaine HCl (Sensorcaine-Mpf 0.5%) 10 ml INJECT ONETIME ONE Stop: 06/16/20 22:54 Last Admin: 06/17/20 00:08 Dose: 10 ml Documented by: Bupivacaine HCl (Sensorcaine-Mpf 0.5%) 10 ml INJECT ONETIME ONE Stop: 06/16/20 23:18 Last Admin: 06/17/20 00:09 Dose: 10 ml Documented by: Diatrizoate Meglum/Diatrizoate Sod (Gastrografin 37%) 120 ml PO ONETIME ONE Stop: 06/17/20 02:04 Last Admin: 06/17/20 02:37 Dose: 120 ml Documented by: Hydromorphone HCl (Dilaudid) 1 mg IVPUSH ONETIME ONE Stop: 06/16/20 21:50 Last Admin: 06/16/20 21:56 Dose: 1 mg Documented by: Hydromorphone HCl (Dilaudid) 1 mg IVPUSH ONETIME ONE Stop: 06/17/20 01:56 Last Admin: 06/17/20 02:04 Dose: 1 mg Documented by: Sodium Chloride (Normal Saline) 1,000 mls @ 150 mls/hr IV ASDIRECTED [facility] Last Admin: 06/17/20 00:12 Dose: 150 mls/hr Documented by: Sodium Chloride (Normal Saline) 1,000 mls @ 50 mls/hr IV ASDIRECTED [facility] Last Admin: 06/17/20 20:28 Dose: 100 mls/hr Documented by: Iopamidol (Isovue-300 (61%)) 100 ml IVPUSH ONETIME ONE Stop: 06/17/20 02:04 Last Admin: 06/17/20 02:37 Dose: 100 ml Documented by: Lidocaine/Epinephrine (Xylocaine 1% With Epinephrine 1:100,000) 20 ml INJECT ONETIME ONE Stop: 06/16/20 22:53 Last Admin: 06/17/20 00:08 Dose: 20 ml Documented by: Magnesium Hydroxide (Milk Of Magnesia) 30 ml PO ONETIME ONE Stop: 06/20/20 06:01 Last Admin: 06/20/20 06:07 Dose: 30 ml Documented by: Ondansetron HCl (Zofran) 4 mg IVPUSH ONETIME ONE Stop: 06/16/20 21:50 Last Admin: 06/16/20 21:56 Dose: 4 mg Documented by: Sodium Chloride (Saline Flush) 10 ml FLUSH ONETIME ONE Stop: 06/17/20 02:05 Last Admin: 06/17/20 02:37 Dose: 10 ml Documented by: - Exam General: Alert, Oriented, Cooperative Lungs: Normal Respiratory Effort, Crackles (bilaterally) Cardiovascular: Regular Rate, Regular Rhythm GI/Abdominal Exam: Soft, Non-Tender, No Organomegaly, No Distention Sepsis Event Note - Evaluation Sepsis Screening Result: No Definite Risk - Focused Exam Vital Signs: Vital Signs Temp Pulse Resp BP Pulse Ox 06/20/20 17:32 98.1 F 60 20 147/93 H 92 L 06/20/20 13:36 98.1 F 60 20 146/84 H 95 06/20/20 07:39 98.4 F 63 20 122/87 92 L 06/20/20 06:17 97.9 F 66 18 139/91 H 91 L - Problem List Review Problem List Initiated/Reviewed/Updated: No - My Orders Last 24 Hours: My Active Orders 06/20/20 08:00 Chest Tube Management [RC] ASDIRECTED 06/20/20 09:19 DME for Inpatients [OM.PC] Stat - Assessment Assessment:: Patient has right posterior rib fxs, right scapular fx and right pneumothorax s/p fall from horse on 06/17. Chest tube was clamped yesterday. Patient has a small left apical Ptx - Plan Plan:: Patient presents with right pneumothorax, right posterior fib fractures x4 and right scapular fracture. - Chest tube placed back to suction. Will repeat chest Xr this PM - continue pulm hygiene with ambulation , sitting upright and incentive spirometry - pain control - will follow up later today
--- NOTE | 2020-06-21 08:02 | CR ---
Chest: Portable view of the chest was obtained. Comparison: Prior chest x-ray of 06/20/20. Heart size is normal. Tortuous thoracic aorta is seen. Small right apical pneumothorax is noted which is slightly improved from previously exam. Areas of atelectasis are noted. Right basilar chest tube remains. Impression: 1. Persisting atelectasis. 2. Small right apical pneumothorax decreased in size from previous exam. 3. Stable right basilar chest tube. Diagnostic code #3 This report was dictated in MDT
[2020-06-21] MEDS: oxyCODONE 5 MG Tab PO PRN ×2 (09:37→13:42)
[2020-06-21] MEDS: Polyethylene Glycol 3350 Powder 17 GM Packet PO SCH (09:39)
[2020-06-21] MEDS: Enoxaparin 30 MG/0.3 ML Syringe SUBCUT SCH (09:42)
--- NOTE | 2020-06-21 11:52 | CR ---
Chest: Portable view of the chest was obtained. Comparison: Prior chest x-ray performed earlier on the same day (4:59 AM). Right basilar chest tube has been removed. Small right apical pneumothorax is seen which appears to be stable. Areas of atelectasis is noted within both lung bases. Tortuous thoracic aorta is again noted. No bony change is seen. Impression: 1. Removal of prior right basilar chest tube. 2. Small stable apical pneumothorax on the right side. 3. Continuing bibasilar atelectasis. Diagnostic code #3 This report was dictated in MDT
--- NOTE | 2020-06-21 12:17 | PCM.PN ---
- General Info Date of Service: 06/21/20 Admission Dx/Problem (Free Text): Admission Diagnosis/Problem Admission Diagnosis/Problem Pneumothorax on right Subjective Update: doing well, walking, eating, on room air Functional Status: Reports: Pain Controlled, Tolerating Diet, Ambulating, Urinating - Review of Systems General: Reports: No Symptoms HEENT: Reports: No Symptoms Pulmonary: Reports: Other (right chest pain) Cardiovascular: Reports: No Symptoms Gastrointestinal: Reports: No Symptoms Genitourinary: Reports: No Symptoms Musculoskeletal: Reports: No Symptoms Skin: Reports: No Symptoms Neurological: Reports: No Symptoms - Patient Data Vitals - Most Recent: Last Vital Signs Temp 98.2 F 06/21/20 08:11 Pulse 58 L 06/21/20 08:11 Resp 20 06/21/20 08:11 BP 145/86 H 06/21/20 08:11 Pulse Ox 93 L 06/21/20 08:11 Weight - Most Recent: 112.808 kg I&O - Last 24 Hours: Intake & Output 06/20/20 06/21/20 06/21/20 22:59 06:59 14:59 Intake Total 880 1025 120 Output Total 790 890 Balance 90 135 120 Med Orders - Current: Current Medications Acetaminophen (Tylenol) 650 mg PO Q4H PRN PRN Reason: Pain Last Admin: 06/18/20 10:38 Dose: 650 mg Documented by: Enoxaparin Sodium (Lovenox) 30 mg SUBCUT Q12HR [facility] Last Admin: 06/21/20 09:42 Dose: 30 mg Documented by: Hydromorphone HCl (Dilaudid) 1 mg IVPUSH Q3H PRN PRN Reason: Pain Last Admin: 06/18/20 21:13 Dose: 1 mg Documented by: Oxycodone HCl (Oxycodone) 5 - 10 mg PO Q4H PRN PRN Reason: Pain Last Admin: 06/21/20 09:37 Dose: 5 mg Documented by: Polyethylene Glycol (Miralax) 17 gm PO DAILY [facility] Last Admin: 06/21/20 09:39 Dose: 17 gm Documented by: Discontinued Medications Bupivacaine HCl (Sensorcaine-Mpf 0.5%) 10 ml INJECT ONETIME ONE Stop: 06/16/20 22:54 Last Admin: 06/17/20 00:08 Dose: 10 ml Documented by: Bupivacaine HCl (Sensorcaine-Mpf 0.5%) 10 ml INJECT ONETIME ONE Stop: 06/16/20 23:18 Last Admin: 06/17/20 00:09 Dose: 10 ml Documented by: Diatrizoate Meglum/Diatrizoate Sod (Gastrografin 37%) 120 ml PO ONETIME ONE Stop: 06/17/20 02:04 Last Admin: 06/17/20 02:37 Dose: 120 ml Documented by: Hydromorphone HCl (Dilaudid) 1 mg IVPUSH ONETIME ONE Stop: 06/16/20 21:50 Last Admin: 06/16/20 21:56 Dose: 1 mg Documented by: Hydromorphone HCl (Dilaudid) 1 mg IVPUSH ONETIME ONE Stop: 06/17/20 01:56 Last Admin: 06/17/20 02:04 Dose: 1 mg Documented by: Sodium Chloride (Normal Saline) 1,000 mls @ [facility] Last Admin: 06/17/20 00:12 Dose: 150 mls/hr Documented by: Sodium Chloride (Normal Saline) 1,000 mls @ 50 mls/hr IV ASDIRECTED [facility] Last Admin: 06/17/20 20:28 Dose: 100 mls/hr Documented by: Sodium Chloride (Normal Saline) 1,000 [facility]ls [facility] Last Admin: 06/20/20 20:40 Dose: 50 mls/hr Documented by: Iopamidol (Isovue-300 (61%)) 100 ml IVPUSH ONETIME ONE Stop: 06/17/20 02:04 Last Admin: 06/17/20 02:37 Dose: 100 ml Documented by: Lidocaine/Epinephrine (Xylocaine 1% With Epinephrine 1:100,000) 20 ml INJECT ONETIME ONE Stop: 06/16/20 22:53 Last Admin: 06/17/20 00:08 Dose: 20 ml Documented by: Magnesium Hydroxide (Milk Of Magnesia) 30 ml PO ONETIME ONE Stop: 06/20/20 06:01 Last Admin: 06/20/20 06:07 Dose: 30 ml Documented by: Ondansetron HCl (Zofran) 4 mg IVPUSH ONETIME ONE Stop: 06/16/20 21:50 Last Admin: 06/16/20 21:56 Dose: 4 mg Documented by: Sodium Chloride (Saline Flush) 10 ml FLUSH ONETIME ONE Stop: 06/17/20 02:05 Last Admin: 06/17/20 02:37 Dose: 10 ml Documented by: - Exam General: Alert, Oriented, Cooperative Lungs: Normal Respiratory Effort, Crackles Cardiovascular: Regular Rate, Regular Rhythm, No Murmurs GI/Abdominal Exam: Soft, Non-Tender, No Organomegaly, No Distention, No Abnormal Bruit Sepsis Event Note - Evaluation Sepsis Screening Result: No Definite Risk - Focused Exam Vital Signs: Vital Signs Temp Pulse Resp BP Pulse Ox 06/21/20 08:11 98.2 F 58 L 20 145/86 H 93 L 06/21/20 04:41 61 92 L 06/21/20 03:48 98.1 F 56 L 18 139/99 H 95 - Problem List Review Problem List Initiated/Reviewed/Updated: No - My Orders Last 24 Hours: My Active Orders 06/21/20 08:04 Ambulate [RC] PER UNIT ROUTINE 06/21/20 12:11 Ready for Discharge [RC] PER UNIT ROUTINE - Assessment Assessment:: Patient has right posterior rib fxs, right scapular fx and right pneumothorax s/p fall from horse on 06/17. Chest tube was clamped yesterday. Patient has a small left apical Ptx - Plan Plan:: Patient presents with right pneumothorax, right posterior fib fractures x4 and right scapular fracture. Stable apical Ptx - stable apical PTx. Chest tube removed this AM. If follow up CXR stable, then the patient can be discharged with close follow up - continue pulm hygiene with ambulation , sitting upright and incentive spirometry - pain control - will follow up later today
--- NOTE | 2020-06-21 12:22 | PCM.DCSUM1 ---
Discharge Summary - Hospital Course Free Text/Narrative:: Patient fell from a horse and had a right pneumothorax along with multiple right sided rib fractures and right scapular fracture. He was managed non-operatively with chest tube. He remained with a persistent apical pneumothorax that remained even with suction and water seal. Patient remained asymptomatic. Chest tube was removed, the patient remained stable. He will be discharged to home today and will follow up with another Xray in 3 days and see PCP in 1 weeks. Diagnosis: Stroke: No - Discharge Data Discharge Date: 06/21/20 Discharge Disposition: Home, Self-Care 01 Condition: Good - Referral to Home Health Primary Care Physician: PCP Not In Area - Patient Instructions Diet: Regular Diet as Tolerated Activity: As Tolerated, Cough & Deep Breathe Driving: Do Not Drive (until 24 hours after completing opioid pain medication and when physically able.) Showering/Bathing: May Shower Wound/Incision Care: Keep Operative Site/Wound Site Clean and Dry, Change D ressing Daily Notify Provider of: Fever, Increased Pain, Swelling and Redness Other/Special Instructions: Please obtain chest Xray in 3 days or if symptoms return. Use clean gauze for chest wound dressing. Use miralax to avoid constipation while taking opioid pain medications. It is very important to keep doing lung exercises frequently such as walking, deep breathing and using incentive spirometer. - Discharge Plan *PRESCRIPTION DRUG MONITORING PROGRAM REVIEWED*: No *COPY OF PRESCRIPTION DRUG MONITORING REPORT IN PATIENT DELORES: No Prescriptions/Med Rec: polyethylene glycoL 3350 [MiraLAX] 17 gm PO DAILY 30 Days #30 packet oxyCODONE 5 - 10 mg PO Q4H PRN 7 Days #42 tablet PRN Reason: Pain Home Medications: Home Meds Aspirin [Herbster Aspirin] 81 mg PO DAILY 06/16/20 [History] oxyCODONE 5 - 10 mg PO Q4H PRN 7 Days #42 tablet 06/21/20 [Rx] polyethylene glycoL 3350 [MiraLAX] 17 gm PO DAILY 30 Days #30 packet 06/21/20 [Rx] Oxygen Therapy Mode: Room Air Forms: ED Department Discharge Referrals: Alanna Weber MD [Physician] - (PCP in 7 days) - Discharge Summary/Plan Comment DC Time >30 min.: Yes - General Info Date of Service: 06/21/20 Admission Dx/Problem (Free Text: Admission Diagnosis/Problem Admission Diagnosis/Problem Pneumothorax on right Subjective Update: Doing well. on room air, pain better, ambulating, breathing Functional Status: Reports: Pain Controlled, Tolerating Diet, Ambulating, Urinating - Review of Systems General: Reports: No Symptoms HEENT: Reports: No Symptoms Pulmonary: Reports: Other (sight sided chest pain) Cardiovascular: Reports: No Symptoms Gastrointestinal: Reports: No Symptoms Genitourinary: Reports: No Symptoms Musculoskeletal: Reports: No Symptoms Skin: Reports: No Symptoms Neurological: Reports: No Symptoms - Patient Data Vitals - Most Recent: Last Vital Signs Temp 98.2 F 06/21/20 08:11 Pulse 58 L 06/21/20 08:11 Resp 20 06/21/20 08:11 BP 145/86 H 06/21/20 08:11 Pulse Ox 93 L 06/21/20 08:11 Weight - Most Recent: 112.808 kg I&O - Last 24 hours: Intake & Output 06/20/20 06/21/20 06/21/20 22:59 06:59 14:59 Intake Total 880 1025 120 Output Total 790 890 Balance 90 135 120 Med Orders - Current: Current Medications Acetaminophen (Tylenol) 650 mg PO Q4H PRN PRN Reason: Pain Last Admin: 06/18/20 10:38 Dose: 650 mg Documented by: Enoxaparin Sodium (Lovenox) 30 mg SUBCUT Q12HR [facility] Last Admin: 06/21/20 09:42 Dose: 30 mg Documented by: Hydromorphone HCl (Dilaudid) 1 mg IVPUSH Q3H PRN PRN Reason: Pain Last Admin: 06/18/20 21:13 Dose: 1 mg Documented by: Oxycodone HCl (Oxycodone) 5 - 10 mg PO Q4H PRN PRN Reason: Pain Last Admin: 06/21/20 09:37 Dose: 5 mg Documented by: Polyethylene Glycol (Miralax) 17 gm PO DAILY [facility] Last Admin: 06/21/20 09:39 Dose: 17 gm Documented by: Discontinued Medications Bupivacaine HCl (Sensorcaine-Mpf 0.5%) 10 ml INJECT ONETIME ONE Stop: 06/16/20 22:54 Last Admin: 06/17/20 00:08 Dose: 10 ml Documented by: Bupivacaine HCl (Sensorcaine-Mpf 0.5%) 10 ml INJECT ONETIME ONE Stop: 06/16/20 23:18 Last Admin: 06/17/20 00:09 Dose: 10 ml Documented by: Diatrizoate Meglum/Diatrizoate Sod (Gastrografin 37%) 120 ml PO ONETIME ONE Stop: 06/17/20 02:04 Last Admin: 06/17/20 02:37 Dose: 120 ml Documented by: Hydromorphone HCl (Dilaudid) 1 mg IVPUSH ONETIME ONE Stop: 06/16/20 21:50 Last Admin: 06/16/20 21:56 Dose: 1 mg Documented by: Hydromorphone HCl (Dilaudid) 1 mg IVPUSH ONETIME ONE Stop: 06/17/20 01:56 Last Admin: 06/17/20 02:04 Dose: 1 mg Documented by: Sodium Chloride (Normal Saline) 1,000 mls @ 150 mls/hr IV ASDIRECTED [facility] Last Admin: 06/17/20 00:12 Dose: 150 mls/hr Documented by: Sodium Chloride (Normal Saline) 1,000 mls @ 50 mls/hr IV [facility] Last Admin: 06/17/20 20:28 Dose: 100 mls/hr Documented by: Sodium Chloride (Normal Saline) 1,000 mls @ 50 mls/hr IV ASD[facility] Last Admin: 06/20/20 20:40 Dose: 50 mls/hr Documented by: Iopamidol (Isovue-300 (61%)) 100 ml IVPUSH ONETIME ONE Stop: 06/17/20 02:04 Last Admin: 06/17/20 02:37 Dose: 100 ml Documented by: Lidocaine/Epinephrine (Xylocaine 1% With Epinephrine 1:100,000) 20 ml INJECT ONETIME ONE Stop: 06/16/20 22:53 Last Admin: 06/17/20 00:08 Dose: 20 ml Documented by: Magnesium Hydroxide (Milk Of Magnesia) 30 ml PO ONETIME ONE Stop: 06/20/20 06:01 Last Admin: 06/20/20 06:07 Dose: 30 ml Documented by: Ondansetron HCl (Zofran) 4 mg IVPUSH ONETIME ONE Stop: 06/16/20 21:50 Last Admin: 06/16/20 21:56 Dose: 4 mg Documented by: Sodium Chloride (Saline Flush) 10 ml FLUSH ONETIME ONE Stop: 06/17/20 02:05 Last Admin: 06/17/20 02:37 Dose: 10 ml Documented by: - Exam General: Reports: Alert, Oriented, Cooperative Lungs: Reports: Normal Respiratory Effort, Crackles Cardiovascular: Reports: Regular Rate, Regular Rhythm, No Murmurs GI/Abdominal Exam: Soft, Non-Tender, No Organomegaly, No Distention, No Abnormal Bruit Skin: Reports: Warm, Dry, Intact
== END 2020-06-21 13:45 | disposition home or self-care (01) | DRG 200 ==
LOC: JD.ED 21:32 → JD.MS 06-17 02:07
PROVIDERS: ADMIT Surgery; ATTEND Surgery
PROC: 0W9930Z Drainage of Right Pleural Cavity with Drainage Device, Percutaneous Approach (ICD-10-PCS; principal; 2020-06-17)
DX: S27.0XXA Traumatic pneumothorax, initial encounter (principal); S22.41XA Multiple fractures of ribs, right side, initial encounter for closed fracture; Z20.828 Contact with and (suspected) exposure to other viral communicable diseases; S42.101A Fracture of unspecified part of scapula, right shoulder, initial encounter for closed fracture; Z88.2 Allergy status to sulfonamides; Z79.82 Long term (current) use of aspirin; V80.010A Animal-rider injured by fall from or being thrown from horse in noncollision accident, initial encounter
CPT/HCPCS: 32551; 36415; 36556; 71045; 71045-26; 71046; 71046-26; 71260; 71260-26; 73030-26-RT; 73030-RT; 80048; 85025; 94760; 96361; 96374; 96375; 96376; 99285; 99285-25; A9270-GY; J1170; J1650; J2405; J3490; J7030; Q9963; Q9967; U0002